=== PATIENT | male | born 1975 | race African-American/Black ===

== ENCOUNTER 2019-05-05 15:36 | Emergency (ER) | payer MEDICARE, MEDICAID ==
[~2019-05-05] VITALS: Ht 170.2 cm; Wt 83.5 kg
[2019-05-05 16:33] VITALS: BP 153/87
== END 2019-05-05 18:42 | disposition left against medical advice (07) ==
LOC: ER 15:44
DX: R50.9 Fever, unspecified (principal); Z53.21 Procedure and treatment not carried out due to patient leaving prior to being seen by health care provider

== ENCOUNTER 2019-06-23 14:14 | Emergency (ER) | payer MEDICARE, MEDICAID ==
[~2019-06-23] VITALS: Ht 170.2 cm; Wt 83.9 kg
[2019-06-23] MEDS ORDERED: ACETAMINOPHEN 500 MG TAB PO ONE (15:00)
[2019-06-23] MEDS ORDERED: IBUPROFEN 600 MG TAB PO ONE (16:15)
[2019-06-23 16:35] VITALS: BP 131/83
== END 2019-06-23 16:35 | disposition home or self-care (01) ==
LOC: ER 14:14
DX: J11.1 Influenza due to unidentified influenza virus with other respiratory manifestations (principal); F17.210 Nicotine dependence, cigarettes, uncomplicated; E11.9 Type 2 diabetes mellitus without complications; I10 Essential (primary) hypertension
CPT/HCPCS: 87804